=== PATIENT | male | born 1965 | race Hispanic/Latino ===

== ENCOUNTER 2019-09-07 18:33 | Emergency (ER) | payer SELFPAY ==
[2019-09-07 18:44] VITALS: BP 132/79; PULSE 73; RESP 20; TEMP 37.4; O2SAT 100
--- NOTE | 2019-09-07 21:26 | ED.GENADULT ---
HPI - General Adult General Chief complaint: Wound/Laceration <Kyle Paitño PA-C - Last Filed: 09/07/19 21:31> Stated complaint: Please look at my wound. <Kyle Patiño PA-C - Last Filed: 09/07/19 21:31> Time Seen by Provider: 09/07/19 18:51 <Kyle Patiño PA-C - Last Filed: 09/07/19 21:31> Source: patient <Kyle Patiño PA-C - Last Filed: 09/07/19 21:31> Mode of arrival: ambulatory <Kyle Patiño PA-C - Last Filed: 09/07/19 21:31> Limitations: language barrier <Kyle Patiño PA-C - Last Filed: 09/07/19 21:31> History of Present Illness HPI narrative: Patient is a 54-year-old male who presents to emergency department with for evaluation of wound to the scalp patient over a week ago had sustained a head injury and had a skin flap sutured into place on the scalp. presents noting that the area is now black and swollen. Patient denies any fever chills nausea vomiting. Patient has no other complaints or concerns at this time. Patient has been taking ibuprofen with pain relief <Kyle Patiño PA-C - Last Filed: 09/07/19 21:31> Review of Systems Review of Systems: All systems reviewed & are unremarkable except as noted in HPI and below <Kyle Patiño PA-C - Last Filed: 09/07/19 21:31> PMFSH Surgical History Surgical History: Surgical History H/O abdominal surgery <Kyle Patiño PA-C - Last Filed: 09/07/19 21:31> Social History Social History: Social History Smoking status: Never smoker <Kyle Patiño PA-C - Last Filed: 09/07/19 21:31> Exam Narrative: Exam Narrative: GENERAL: Well-appearing, well-nourished, and in no acute distress. HEAD: Normocephalic, atraumatic. EYES: PERRLA and EOMI. ENT: Nares clear, no rhinorrhea or epistaxis. Mucous membranes moist. CHEST: Clear to auscultation. No respiratory distress. No wheezes rales or rhonchi HEART: Regular rate and rhythm. No murmur heard. EXTREMITIES: Normal range of motion. No edema. SKIN: Warm, dry, no rash. Patient with 4 x 3 cm devitalized skin flap of the parietal scalp with slight purulence at the wound margin no erythema of the scalp NEURO: No focal deficits. Alert and oriented x3. Cranial nerves II through XII grossly intact. Normal speech and gait PSYCH: Normal mood and affect. <KANE Meza Last Filed: 09/07/19 21:31> Course Course Emergency Course: Patient in the room at this time aware of case findings treatment plan and diagnosis agreeing to follow-up with plastic surgery for further evaluation of his wound <KANE Meza Last Filed: 09/07/19 21:31> Consultations Consultation #1: Case discussed with plastic surgery who will follow patient in clinic <KANE Meza Last Filed: 09/07/19 21:31> Date: 09/07/19 <KANE Meza Last Filed: 09/07/19 21:31> Time: 21:28 <KANE Meza Last Filed: 09/07/19 21:31> Vital Signs Vital signs: Vital Signs Temperature 37.4 C 09/07/19 18:44 Pulse Rate 73 09/07/19 18:44 Respiratory Rate 09/07/19 18:44 Blood Pressure 132/79 09/07/19 18:44 Pulse Oximetry 100 09/07/19 18:44 Temperature 37.2 C 09/07/19 21:55 Pulse Rate 70 09/07/19 21:55 Respiratory Rate 09/07/19 21:55 Blood Pressure 128/68 09/07/19 21:55 Pulse Oximetry 100 09/07/19 21:55 <KANE Meza Last Filed: 09/07/19 21:31> Vital Signs Temperature 37.4 C 09/07/19 18:44 Pulse Rate 73 09/07/19 18:44 Respiratory Rate 20 09/07/19 18:44 Blood Pressure 132/79 09/07/19 18:44 Pulse Oximetry 100 09/07/19 18:44 Temperature 37.2 C 09/07/19 21:55 Pulse Rate 70 09/07/19 21:55 Respiratory Rate 20 09/07/19 21:55 Blood Pressure 128/68 09/07/19 21:55 Pulse Oximetry 100 09/07/19 21:
[2019-09-07 21:55] VITALS: BP 128/68; PULSE 70; RESP 20; TEMP 37.2; O2SAT 100
== END 2019-09-07 21:57 | disposition home or self-care (01) ==
LOC: ANHED 21:44
PROVIDERS: Emergency Provider Emergency Medicine
DX: S01.00XA Unspecified open wound of scalp, initial encounter (principal); X58.XXXA Exposure to other specified factors, initial encounter
CPT/HCPCS: 11010; 99283